=== PATIENT | female | born 1980 | race African-American/Black ===

== ENCOUNTER 2016-06-13 00:49 | Inpatient (IN) | payer OTHER, MEDICAID ==
[~2016-06-13] VITALS: Ht 154.9 cm; Wt 78.2 kg
[2016-06-13] MEDS ORDERED: SODIUM CHLORIDE 0.9% 1,000 ML IV ONE (01:31)
[2016-06-13] MEDS ORDERED: ACETAMINOPHEN 325MG TABLET PO STA (01:31)
[2016-06-13] MEDS ORDERED: LEVOFLOXACIN 750MG PREMIX 150 ML IV ONE (01:45)
[2016-06-13 01:53] LABS: HEMATOCRIT. 46.1 % (36.0-48.0); HEMOGLOBIN. 15.1 g/dL (12.0-16.0); MEAN CORPUSCULAR HEMOGLOBIN 26.5 pg (28.0-32.0); MEAN CORPUSCULAR HGB CONC 32.7 g/dL (31.0-37.0); MEAN PLATELET VOLUME 8.2 fl (7.4-10.4); PLATELET 246 x1000/uL (130-400); RED CELL DISTRIBUTION WIDTH 13.6 % (11.6-14.6)
[2016-06-13 01:54] LABS: DIFFERENTIAL COMMENT 1
[2016-06-13 01:59] LABS: CHLORIDE 98 mEq/L (98-107); INDEX HEMOLYSI 1 (1-3); INDEX ICTERIC 1 (1-4); INDEX LIPEMIC 1 (1-3)
[2016-06-13 02:07] LABS: ALANINE AMINOTRANSFERASE 22 IU/L (13-61); ALBUMIN 3.4 g/dL (3.4-5.0); ANION GAP 13; CALCIUM 8.8 mg/dL (8.5-10.1); CARBON DIOXIDE 27 mEq/L (21-32); UREA NITROGEN BLOOD 12 mg/dL (7-21); eGFR 48 mL/min (>60)
[2016-06-13] MEDS ORDERED: IBUPROFEN 600MG TABLET PO ONE (02:15)
[2016-06-13 02:41] LABS: ATYPICAL LYMPHOCYTES 1; PLATELET ESTIMATE NORMAL
[2016-06-13 08:58] VITALS: BP 104/71
[2016-06-13] MEDS ORDERED: IPRATROPIUM/ALBUTEROL 0.5-3(2.5)MG/3ML NEB INH PRN (09:30)
[2016-06-13] MEDS ORDERED: TRAMADOL 50MG TABLET PO PRN (09:30)
[2016-06-13] MEDS ORDERED: DOCUSATE SODIUM 100MG CAPSULE PO PRN (09:30)
[2016-06-13] MEDS ORDERED: NA PHOS,M-B/NA PHOS,DI-BA ENEMA 118ML PR PRN (09:30)
[2016-06-13] MEDS ORDERED: ACETAMINOPHEN 325MG TABLET PO PRN (09:30)
[2016-06-13] MEDS ORDERED: KETOROLAC 30MG/ML VIAL IV PRN (09:30)
[2016-06-13] MEDS ORDERED: LORAZEPAM 2MG/ML CPJ IV PRN (09:30)
[2016-06-13] MEDS ORDERED: GUAIFENESIN 200MG/10ML SUGAR FREE UDC PO PRN (09:30)
[2016-06-13] MEDS ORDERED: CLONIDINE 0.1MG TABLET PO PRN (09:30)
[2016-06-13] MEDS ORDERED: ONDANSETRON HCL 4MG/2ML VIAL IV PRN (09:30)
[2016-06-13] MEDS ORDERED: DIPHENHYDRAMINE 50MG/ML VIAL IV PRN (09:30)
[2016-06-13] MEDS ORDERED: MAGNESIUM/ALUMINUM HYDROXIDE/SIMETHICONE 30ML UDC PO PRN (09:30)
[2016-06-13] MEDS: PANTOPRAZOLE SODIUM 40 MG/VIAL IV SCH (10:27)
[2016-06-13] MEDS: CEFTRIAXONE 1 G PREMIX 50 ML IV SCH (10:35)
[2016-06-13] MEDS: AZITHROMYCIN 500 MG in DEXT 5% WATER 250 ML IV SCH (11:28)
[2016-06-13 12:00] VITALS: BP 105/67
[2016-06-13 14:24] LABS: LACTIC ACID 2.8 mmol/L (0.4-2.0)
[2016-06-13] MEDS ORDERED: SODIUM CHLORIDE 0.9% 1,000 ML IV NR ×2 (14:27→14:30)
[2016-06-13 16:00] VITALS: BP 140/90
[2016-06-13 20:00] VITALS: BP 108/67
[2016-06-13] MEDS: GUAIFENESIN 600MG ER TABLET PO SCH (20:02)
[2016-06-13] MEDS: ASCORBIC ACID 500 MG TABLET PO SCH (20:02)
[2016-06-13] MEDS ORDERED: ZOLPIDEM TARTRATE 5MG TABLET PO PRN (21:00)
[2016-06-14] VITALS: BP 113/85
[2016-06-14 00:04] LABS: *AMPHETAMINES SCREEN URINE NEGATIVE (NEGATIVE); *BARBITURATES SCREEN URINE NEGATIVE (NEGATIVE); *BENZODIAZEPINES SCREEN URINE NEGATIVE (NEGATIVE); *COCAINE SCREEN URINE NEGATIVE (NEGATIVE); CANNABINOID URINE SCREEN NEGATIVE (NEGATIVE); ECSTASY MDMA SCREEN URINE NEGATIVE (NEGATIVE); METHADONE URINE SCREEN NEGATIVE (NEGATIVE); OPIATES URINE SCREEN NEGATIVE (NEGATIVE); PHENCYCLIDINE URINE SCREEN NEGATIVE (NEGATIVE)
[2016-06-14 04:00] VITALS: BP 124/83
[2016-06-14 06:51] LABS: BASOPHILS % 0.2 % (0.0-2.0); EOSINOPHILS % 0.4 % (0.0-5.0); HEMATOCRIT. 40.5 % (36.0-48.0); HEMOGLOBIN. 12.9 g/dL (12.0-16.0); LYMPHOCYTES % 17.1 % (20.0-50.0); MEAN CORPUSCULAR HEMOGLOBIN 26.3 pg (28.0-32.0); MEAN CORPUSCULAR HGB CONC 31.8 g/dL (31.0-37.0); MEAN CORPUSCULAR VOLUME 82.6 fL (81.0-99.0); MEAN PLATELET VOLUME 8.9 fl (7.4-10.4); MONOCYTES % 4.9 % (2.0-8.0); NEUTROPHILS % 77.4 % (40.0-76.0); PLATELET 219 x1000/uL (130-400); WHITE BLOOD COUNT 24.6 x1000/uL (4.5-11.0)
[2016-06-14 07:38] LABS: ALANINE AMINOTRANSFERASE 16 IU/L (13-61); ALBUMIN 2.6 g/dL (3.4-5.0); ANION GAP 13; CALCIUM 8.5 mg/dL (8.5-10.1); CARBON DIOXIDE 23 mEq/L (21-32); CHLORIDE 108 mEq/L (98-107); INDEX HEMOLYSI 1 (1-3); INDEX ICTERIC 1 (1-4); INDEX LIPEMIC 1 (1-3); UREA NITROGEN BLOOD 13 mg/dL (7-21); eGFR 57 mL/min (>60)
[2016-06-14 07:49] VITALS: BP 114/74
[2016-06-14] MEDS: ASCORBIC ACID 500 MG TABLET PO SCH (08:17)
[2016-06-14] MEDS: GUAIFENESIN 600MG ER TABLET PO SCH (08:17)
[2016-06-14] MEDS: PANTOPRAZOLE SODIUM 40 MG/VIAL IV SCH (08:26)
[2016-06-14] MEDS: CEFTRIAXONE 1 G PREMIX 50 ML IV SCH (10:38)
[2016-06-14] MEDS: AZITHROMYCIN 500 MG in DEXT 5% WATER 250 ML IV SCH (11:37)
[2016-06-14 11:54] VITALS: BP 125/90
[2016-06-14 14:44] VITALS: BP 125/90
[2016-06-14 16:00] VITALS: BP 124/85
[2016-06-15] MEDS ORDERED: FAMOTIDINE 20MG TABLET PO SCH (09:00)
== END 2016-06-14 16:05 | disposition short-term general hospital (02) | DRG 871 ==
LOC: ER 01:24 → 8WST 03:41
PROVIDERS: ADMIT Internal Medicine; ATTEND Internal Medicine
DX: A41.9 Sepsis, unspecified organism (principal); J18.9 Pneumonia, unspecified organism; E44.0 Moderate protein-calorie malnutrition; B19.20 Unspecified viral hepatitis C without hepatic coma; Z68.32 Body mass index [BMI] 32.0-32.9, adult
CPT/HCPCS: 36415; 71010; 80053; 80305; 81025; 83036; 83605; 85025; 87040; 96365; 99285; C9113; J0456; J0696; J1956; J7030; J7040; J7060

== ENCOUNTER 2021-06-18 13:13 | Emergency (ER) | payer MEDICAID, OTHER ==
[~2021-06-18] VITALS: Ht 154.9 cm; Wt 82.0 kg
[2021-06-18] MEDS ORDERED: IBUPROFEN 800MG TABLET PO ONE (16:45)
[2021-06-18 17:36] LABS: EOSINOPHILS % 2.5 % (0.0-5.0); HEMOGLOBIN. 13.7 g/dL (12.0-16.0); LYMPHOCYTES % 35.9 % (20.0-50.0); MEAN CORPUSCULAR HEMOGLOBIN 25.9 pg (28.0-32.0); MEAN CORPUSCULAR VOLUME 79.3 fL (81.0-99.0); MEAN PLATELET VOLUME 8.4 fl (7.4-10.4); MONOCYTES % 6.3 % (2.0-8.0); NEUTROPHILS % 54.3 % (40.0-76.0); PLATELET 335 x1000/uL (130-400); RED CELL DISTRIBUTION WIDTH 17.1 % (11.6-14.6)
[2021-06-18 17:43] LABS: CHLORIDE 104 mEq/L (98-107)
[2021-06-18 17:51] VITALS: BP 124/70
[2021-06-18] MEDS ORDERED: IBUP-2029 MT (18:12)
== END 2021-06-18 19:08 | disposition home or self-care (01) ==
LOC: ER 13:13
DX: M25.512 Pain in left shoulder (principal); I10 Essential (primary) hypertension; Z98.890 Other specified postprocedural states
CPT/HCPCS: 36415; 73030; 80053; 84484; 85025; 93005; 99285

== ENCOUNTER 2022-04-05 09:37 | Emergency (ER) | payer MEDICAID, OTHER ==
[~2022-04-05] VITALS: Ht 154.9 cm; Wt 78.0 kg
[~2022-04-05 09:37] MED LIST: IBUP-2029 MT
[2022-04-05 09:43] VITALS: BP 146/71
== END 2022-04-05 13:55 | disposition home or self-care (01) ==
LOC: ER 09:37
DX: M79.604 Pain in right leg (principal); E11.9 Type 2 diabetes mellitus without complications; I10 Essential (primary) hypertension; Z98.890 Other specified postprocedural states
CPT/HCPCS: 93971; 99284